=== PATIENT | female | born 1970 | race Caucasian/White ===

== ENCOUNTER 2021-09-22 20:06 | Emergency (ER) | payer OTHER ==
[2021-09-23 16:21] LABS: SARS-CoV-2 PCR by NAA Not Detected (NotDetected)
== END 2021-09-22 21:24 | disposition home or self-care (01) ==
LOC: BURERS 20:06
DX: J06.9 Acute upper respiratory infection, unspecified (principal); Z20.822 Contact with and (suspected) exposure to COVID-19; E78.5 Hyperlipidemia, unspecified; J45.909 Unspecified asthma, uncomplicated; K21.9 Gastro-esophageal reflux disease without esophagitis
CPT/HCPCS: 87081; 87430; 87804; 99283; U0003; U0005